=== PATIENT | male | born 1970 | race Caucasian/White ===

== ENCOUNTER → 2019-01-15 | Outpatient (CLI) | payer MEDICARE ==
--- NOTE | 2019-01-15 19:24 | REP ---
MRI RIGHT KNEE: TECHNIQUE: Axial proton density fat saturation, sagittal proton density T2 STIR, water excitation, coronal proton density, proton density fat saturation. The medial and lateral menisci appear intact with no evidence of a tear. The cruciate and collateral ligaments are intact. There is focal increased signal on T2-weighted images in the superior patellar tendon at its insertion onto the lower pole of the patella consistent with a partial tear. Patella is somewhat high riding. Ratio of patellar tendon length to the length of the patella is approximately 1.6. Medial and lateral patellar retinacula are intact. 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 There is mild marrow edema in the lower pole of the patella. There is a small joint effusion with a tiny amount of fluid extending into the medial popliteal fossa. IMPRESSION: No meniscal tear. Cruciate and collateral ligaments intact. Partial tear superior aspect of patellar tendon at its insertion onto the lower pole of the patella. There adjacent edema in the lower pole of the patella. 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 Small joint effusion. Unreviewed
== END ==
LOC: M RAD 14:45
PROVIDERS: ATTEND Orthopaedic Surgery
DX: M25.561 Pain in right knee (principal)